=== PATIENT | female | born 1940 | race African-American/Black ===

== ENCOUNTER → 2016-07-19 | Outpatient (CLI) | payer OTHER, MEDICAID ==
[~2016-07-19] MED LIST: ALBU8.5H3 INH; ATOR10TA PO; BUDE10.2 INJ; EZET10TA3 PO; FAMO-79 PO; GADOBUTROL 7.5 MMOL/7.5 ML VIAL ONE; HYDR-3138 PO
== END | disposition home or self-care (01) ==
LOC: CFH 09:40
PROVIDERS: ATTEND Nurse Practitioner Family
DX: J44.9 Chronic obstructive pulmonary disease, unspecified (principal); R60.0 Localized edema; M19.031 Primary osteoarthritis, right wrist; I10 Essential (primary) hypertension
CPT/HCPCS: 71020; 73220; A9585

== ENCOUNTER → 2017-01-02 | Outpatient (CLI) | payer OTHER, MEDICAID ==
[~2017-01-02] MED LIST changes: -ALBU8.5H3 INH; +ALBU8.5H8 INH; +EZET10TA18 PO; -EZET10TA3 PO; -GADOBUTROL 7.5 MMOL/7.5 ML VIAL ONE; -HYDR-3138 PO; +HYDR-3237 PO
== END | disposition home or self-care (01) ==
LOC: CFH 09:31
PROVIDERS: ATTEND Nurse Practitioner Family
DX: Z12.31 Encounter for screening mammogram for malignant neoplasm of breast (principal); Z13.820 Encounter for screening for osteoporosis; M81.0 Age-related osteoporosis without current pathological fracture; Z92.21 Personal history of antineoplastic chemotherapy; Z85.3 Personal history of malignant neoplasm of breast; Z92.3 Personal history of irradiation
CPT/HCPCS: 77080; G0202

== ENCOUNTER → 2017-04-22 | Outpatient (CLI) | payer OTHER, MEDICAID | END | disposition home or self-care (01) | LOC: CFH 10:29 | PROVIDERS: ATTEND Internal Medicine | DX: J44.9 Chronic obstructive pulmonary disease, unspecified (principal); Z98.890 Other specified postprocedural states | CPT/HCPCS: 71046 ==

== ENCOUNTER → 2017-07-28 | Outpatient (CLI) | payer OTHER, MEDICAID | END | disposition home or self-care (01) | LOC: CFH 12:20 | PROVIDERS: ATTEND Licensed Practical Nurse | DX: Z12.2 Encounter for screening for malignant neoplasm of respiratory organs (principal); J44.9 Chronic obstructive pulmonary disease, unspecified; R91.8 Other nonspecific abnormal finding of lung field; F17.210 Nicotine dependence, cigarettes, uncomplicated | CPT/HCPCS: G0297 ==

== ENCOUNTER 2017-08-07 13:53 | Emergency (ER) | payer OTHER, MEDICAID ==
[~2017-08-07] VITALS: Ht 165.1 cm; Wt 71.6 kg
[2017-08-07 13:55] VITALS: BP 103/67
== END 2017-08-07 15:40 | disposition home or self-care (01) ==
LOC: ED 15:30
DX: M25.562 Pain in left knee (principal); M79.89 Other specified soft tissue disorders; R26.2 Difficulty in walking, not elsewhere classified; C50.919 Malignant neoplasm of unspecified site of unspecified female breast; J44.9 Chronic obstructive pulmonary disease, unspecified; M81.0 Age-related osteoporosis without current pathological fracture; I10 Essential (primary) hypertension; E11.9 Type 2 diabetes mellitus without complications; Z88.5 Allergy status to narcotic agent
CPT/HCPCS: 99284

== ENCOUNTER → 2017-09-19 | Outpatient (CLI) | payer OTHER, MEDICAID | LOC: CFH 11:03 | PROVIDERS: ATTEND Surgery | DX: E04.2 Nontoxic multinodular goiter (principal) | CPT/HCPCS: 76536 ==

== ENCOUNTER → 2017-12-15 | Outpatient (CLI) | payer OTHER, MEDICAID ==
[~2017-12-15] MED LIST changes: +GABA300C10 PO; +HYDR-3241 PO; +TIOT18CA INH; +TRAZ-136 PO
== END | disposition home or self-care (01) ==
LOC: STAR 10:49
PROVIDERS: ATTEND Surgery
DX: Z01.818 Encounter for other preprocedural examination (principal); F17.200 Nicotine dependence, unspecified, uncomplicated; Z85.3 Personal history of malignant neoplasm of breast
CPT/HCPCS: 93005

== ENCOUNTER 2017-12-22 05:49 | Inpatient (IN) | payer OTHER, MEDICAID ==
[~2017-12-22] VITALS: Ht 162.6 cm; Wt 76.2 kg
[2017-12-22] MEDS ORDERED: BUPIVACAINE/PF-EPI 0.5% 1:200K ONE (06:43)
[2017-12-22] MEDS ORDERED: LACTATED RINGERS 1,000 ML IV SCH (06:48)
[2017-12-22] MEDS ORDERED: LIDOCAINE-MPF 1%, 2ML INFIL ONE (07:00)
[2017-12-22] MEDS ORDERED: FENTANYL PF 250 MCG/5ML ONE (07:09)
[2017-12-22] MEDS ORDERED: PROPOFOL 50 ML ONE (07:12)
[2017-12-22] MEDS ORDERED: MIDAZOLAM 1 MG/ML, 2ML ONE (07:27)
[2017-12-22] MEDS ORDERED: HYDROmorphone 1 MG/ML, 1ML IV PRN (08:30)
[2017-12-22] MEDS ORDERED: PROMETHAZINE 25 MG SUPP PR PRN (08:30)
[2017-12-22] MEDS ORDERED: LABETALOL 5MG/ML, 20ML IV PRN (08:30)
[2017-12-22] MEDS ORDERED: PROMETHAZINE 12.5 MG SUPP PR PRN (08:30)
[2017-12-22] MEDS ORDERED: EPHEDRINE 50 MG/ML, 1ML IM PRN (08:30)
[2017-12-22] MEDS ORDERED: MIDAZOLAM 1 MG/ML, 2ML IV PRN (08:30)
[2017-12-22] MEDS ORDERED: DIPHENHYDRAMINE 50 MG/ML, 1ML IVPush PRN (08:30)
[2017-12-22] MEDS ORDERED: EPHEDRINE 50 MG/ML, 1ML IVPush PRN (08:30)
[2017-12-22] MEDS ORDERED: ONDANSETRON 2MG/ML, 2ML IV PRN ×2 (08:30→11:30)
[2017-12-22] MEDS ORDERED: ONDANSETRON ODT 8 MG PO PRN (08:30)
[2017-12-22] MEDS ORDERED: ACETAMINOPHEN 325 MG TABLET PO PRN ×2 (08:30→11:30)
[2017-12-22] MEDS ORDERED: HYDROcodone/APAP 7.5-325MG/15ML UDC ONE (09:27)
[2017-12-22] MEDS ORDERED: FENTANYL PF 100 MCG/2ML ONE (09:27)
[2017-12-22] MEDS: FENTANYL PF 100 MCG/2ML IV PRN ×3 (09:35→09:49)
[2017-12-22] MEDS ORDERED: HYDROmorphone 2 MG/ML, 1ML ONE (09:52)
[2017-12-22] MEDS ORDERED: HYDROcodone/APAP 7.5-325MG/15ML UDC PO PRN (10:00)
[2017-12-22] MEDS ORDERED: ALBUTEROL SULFATE 2.5 MG/3 ML HHN PRN (11:30)
[2017-12-22] MEDS ORDERED: ACETAMINOPHEN 650 MG SUPP PR PRN (11:30)
[2017-12-22] MEDS ORDERED: hydrALAzine 20 MG/ML, 1ML IV PRN (11:30)
[2017-12-22] MEDS ORDERED: TRAZODONE 100MG TABLET PO PRN (12:30)
[2017-12-22 12:56] VITALS: BP 125/76
[2017-12-22] MEDS: HYDROcodone/APAP 5/325 TABLET PO PRN ×2 (13:59→20:12)
[2017-12-22] MEDS: IPRATROPIUM 0.5 MG/2.5 ML INHA HHN SCH ×2 (15:00→21:00)
[2017-12-22] MEDS ORDERED: CEFAZOLIN 1,000 MG ONE (16:13)
[2017-12-22] MEDS ORDERED: ONDANSETRON 2MG/ML, 2ML ONE (16:13)
[2017-12-22] MEDS ORDERED: SUCCINYLCHOLINE 20 MG/ML, 10ML ONE (16:13)
[2017-12-22] MEDS ORDERED: ROCURONIUM 10MG/ML,5ML ONE (16:13)
[2017-12-22] MEDS ORDERED: PROPOFOL 10 MG/ML, 20ML ONE (16:13)
[2017-12-22 19:25] VITALS: BP 119/71
[2017-12-22] MEDS: FAMOTIDINE 20 MG TABLET PO SCH (20:12)
[2017-12-22] MEDS: GABAPENTIN 300 MG CAPSULE PO SCH (20:12)
[2017-12-22] MEDS: SODIUM CHLORIDE FLUSH 10ML SYR IVF SCH (20:13)
[2017-12-22] MEDS ORDERED: ATORVASTATIN 10 MG TABLET PO SCH (21:00)
[2017-12-22 23:30] VITALS: BP 106/71
[2017-12-23] VITALS (13 sets, daily range): BP systolic 89–139; BP diastolic 45–74
[2017-12-23] MEDS: IPRATROPIUM 0.5 MG/2.5 ML INHA HHN SCH ×2 (03:00→09:35)
[2017-12-23] MEDS: GABAPENTIN 300 MG CAPSULE PO SCH (08:34)
[2017-12-23] MEDS: FAMOTIDINE 20 MG TABLET PO SCH (08:42)
[2017-12-23] MEDS: HYDROcodone/APAP 5/325 TABLET PO PRN (08:42)
[2017-12-23] MEDS: SODIUM CHLORIDE FLUSH 10ML SYR IVF SCH (09:00)
[2017-12-23] MEDS ORDERED: EZETIMIBE 10 MG TABLET PO SCH (09:00)
[2017-12-23] MEDS ORDERED: IPRATROPIUM 0.5 MG/2.5 ML INHA NPPB SCH (11:27)
[2017-12-23] MEDS ORDERED: IPRATROPIUM 0.5 MG/2.5 ML INHA HHN SCH (11:28)
== END 2017-12-23 16:07 | disposition home or self-care (01) | DRG 627 ==
LOC: OUT 05:49 → 4NOR 10:48 → OUT 12:07
PROVIDERS: ADMIT Surgery; ATTEND Surgery
PROC: 0GBJ0ZZ Excision of Thyroid Gland Isthmus, Open Approach (ICD-10-PCS; 2017-12-22)
PROC: 0GTH0ZZ Resection of Right Thyroid Gland Lobe, Open Approach (ICD-10-PCS; principal; 2017-12-22 07:30)
DX: E04.1 Nontoxic single thyroid nodule (principal); F17.210 Nicotine dependence, cigarettes, uncomplicated; J44.9 Chronic obstructive pulmonary disease, unspecified; E78.5 Hyperlipidemia, unspecified; I10 Essential (primary) hypertension; E11.9 Type 2 diabetes mellitus without complications; Z90.711 Acquired absence of uterus with remaining cervical stump; Z79.899 Other long term (current) drug therapy; Z82.49 Family history of ischemic heart disease and other diseases of the circulatory system; Z83.3 Family history of diabetes mellitus; Z80.8 Family history of malignant neoplasm of other organs or systems
CPT/HCPCS: 82962; 88307; 94640; G0378; J0690; J1170; J2250; J2405; J2704; J3010; J3490; J7613; J7644; C1760; J0330; J7120

== ENCOUNTER 2017-12-23 21:47 | Inpatient (IN) | payer OTHER, MEDICAID ==
[~2017-12-23] VITALS: Ht 167.6 cm; Wt 74.6 kg
[2017-12-23 22:41] LABS: MICROSCOPIC AUTO
[2017-12-23 22:46] LABS: AMPHETAMINE SCREEN, URINE Negative (Negative); BARBITURATE SCREEN, URINE Negative (Negative); BENZODIAZEPINE SCREEN, URINE Negative (Negative); CANNABINOID SCREEN, URINE Negative (Negative); COCAINE SCREEN, URINE Negative (Negative); METHADONE SCREEN, URINE Negative (Negative); OPIATE SCREEN, URINE Positive (Negative)
[2017-12-23 22:48] LABS: MEAN CORPUSCULAR HEMOGLOBIN 28.9 pg (27.0-34.8); MEAN CORPUSCULAR HGB CONC 33.2 g/dL (32.4-35.8); MEAN CORPUSCULAR VOLUME 86.9 fL (80-100); MEAN PLATELET VOLUME 7.1 fL (7.4-10.4); PLATELET COUNT 268 x10^3/uL (130-400); RED CELL DISTRIBUTION WIDTH 14.9 % (9.6-15.2)
[2017-12-23 22:53] LABS: CULTURE INDICATED? YES
[2017-12-23] MEDS ORDERED: ACETAMINOPHEN 500 MG TABLET PO ONE (23:00)
[2017-12-23] MEDS ORDERED: CEFTRIAXONE 1,000 MG in SODIUM CHLORIDE 0.9% 50 ML IVPB ONE (23:00)
[2017-12-23] MEDS ORDERED: SODIUM CHLORIDE 0.9% 1,000ML IVBOLUS ONE (23:00)
[2017-12-23 23:04] LABS: BASOPHILS % (AUTO) 0 % (0-1); EOSINOPHILS % (AUTO) 0 % (1-7); LYMPHOCYTES # (AUTO) 0.74 x10^3/uL (1-3.4); LYMPHOCYTES % (AUTO) 7 % (22-44); MD SCAN; MONOCYTES # (AUTO) 0.66 x10^3/uL (0.2-0.8); MONOCYTES % (AUTO) 6 % (2-9); NEUTROPHILS # (AUTO) 8.99 x10^3/uL (1.8-6.8); NEUTROPHILS % (AUTO) 87 % (42-75)
[2017-12-23 23:07] LABS: ALANINE AMINOTRANSFERASE 27 U/L (12-78); ALBUMIN 2.7 g/dL (3.4-5.0); ANION GAP 8 mmol/L (5-15); CALCIUM 7.8 mg/dL (8.5-10.1); CHLORIDE 106 mmol/L (98-107); CREATININE 0.63 mg/dL (0.55-1.02)
[2017-12-23 23:09] LABS: ALKALINE PHOSPHATASE 85 U/L (45-117); BILIRUBIN,TOTAL 1.4 mg/dL (0.2-1.0); SALICYLATE LEVEL < 1.7 mg/dL (2.8-20.0); TOTAL PROTEIN 6.5 g/dL (6.4-8.2)
[2017-12-23 23:10] LABS: ACETAMINOPHEN < 2 mcg/mL (10-30)
[2017-12-23] MEDS ORDERED: LEVOFLOXACIN/PMX 750MG/150ML 150 ML ONE (23:11)
[2017-12-23] MEDS ORDERED: ACETAMINOPHEN 500 MG TABLET ONE (23:11)
[2017-12-23] MEDS ORDERED: CEFTRIAXONE PMX 1GM/50ML 50 ML ONE (23:11)
[2017-12-23] MEDS ORDERED: LEVOFLOXACIN/PMX 750MG/150ML 150 ML IV ONE (23:30)
[2017-12-24] MEDS ORDERED: ONDANSETRON ODT 4 MG PO PRN (00:30)
[2017-12-24] MEDS ORDERED: POLYETHYLENE GLYCOL 17 GM PACKET PO PRN (00:30)
[2017-12-24] MEDS ORDERED: ONDANSETRON 2MG/ML, 2ML IVPush PRN (00:30)
[2017-12-24] MEDS ORDERED: TEMPLATE NON-FORMULARY MED. (Albuterol Sulfate (Proair Hfa) 2 PUFF(S)) INH PRN (00:30)
[2017-12-24] MEDS: TRAZODONE 50MG TABLET PO SCH ×2 (02:30→21:00)
[2017-12-24] MEDS: ENOXAPARIN 40 MG/0.4 ML SQ SCH (03:54)
[2017-12-24] MEDS: SODIUM CHLORIDE 0.9% 1,000 ML IV SCH ×2 (03:54→22:15)
[2017-12-24] MEDS ORDERED: ALBUTEROL SULFATE 2.5 MG/3 ML NPPB PRN (04:00)
[2017-12-24] MEDS: IPRATROPIUM 0.5 MG/2.5 ML INHA HHN SCH ×3 (04:00→19:15)
[2017-12-24 04:03] VITALS: BP 110/75
[2017-12-24 06:38] LABS: BASOPHILS # (AUTO) 0.01 x10^3/uL (0-0.1); BASOPHILS % (AUTO) 0 % (0-1); EOSINOPHILS # (AUTO) 0.01 x10^3/uL (0-0.4); EOSINOPHILS % (AUTO) 0 % (1-7); LYMPHOCYTES # (AUTO) 1.12 x10^3/uL (1-3.4); LYMPHOCYTES % (AUTO) 12 % (22-44); MD NO; MEAN CORPUSCULAR HEMOGLOBIN 28.8 pg (27.0-34.8); MEAN CORPUSCULAR HGB CONC 32.9 g/dL (32.4-35.8); MEAN CORPUSCULAR VOLUME 87.4 fL (80-100); MEAN PLATELET VOLUME 7.4 fL (7.4-10.4); MONOCYTES # (AUTO) 0.66 x10^3/uL (0.2-0.8); MONOCYTES % (AUTO) 7 % (2-9); NEUTROPHILS # (AUTO) 7.87 x10^3/uL (1.8-6.8); NEUTROPHILS % (AUTO) 81 % (42-75); PLATELET COUNT 247 x10^3/uL (130-400); RED BLOOD COUNT 3.61 x10^6/uL (3.82-5.3); RED CELL DISTRIBUTION WIDTH 14.9 % (9.6-15.2)
[2017-12-24 06:45] LABS: ANION GAP 7 mmol/L (5-15); CALCIUM 7.6 mg/dL (8.5-10.1); CHLORIDE 108 mmol/L (98-107); CREATININE 0.46 mg/dL (0.55-1.02)
[2017-12-24 07:11] VITALS: BP 115/76
[2017-12-24] MEDS: TEMPLATE NON-FORMULARY MED. (Tiotropium Bromide** (Spiriva**) 18 MCG) INH SCH (09:00)
[2017-12-24] MEDS: GABAPENTIN 300 MG CAPSULE PO SCH ×2 (09:34→22:15)
[2017-12-24] MEDS ORDERED: POTASSIUM PHOSPHATE 22 MEQ in SODIUM CHLORIDE 0.9% 500 ML IV ONE (11:00)
[2017-12-24] MEDS ORDERED: MAGNESIUM SULFATE PMX 4GM/100M 100 ML IV ONE (11:00)
[2017-12-24 12:00] VITALS: BP 132/80
[2017-12-24 12:56] LABS: THYROID STIMULATING HORMONE 0.207 mIU/L (0.358-3.740)
[2017-12-24 19:41] VITALS: BP 122/69
[2017-12-24] MEDS: FAMOTIDINE 20 MG TABLET PO SCH (22:14)
[2017-12-24] MEDS: ATORVASTATIN 10 MG TABLET PO SCH (22:15)
[2017-12-24] MEDS: POTASSIUM CHLORIDE 20 MEQ TAB.ER.PRT PO SCH (22:18)
[2017-12-24] MEDS: EZETIMIBE 10 MG TABLET PO SCH (22:23)
[2017-12-24] MEDS: ACETAMINOPHEN 325 MG TABLET PO PRN (22:58)
[2017-12-24] MEDS ORDERED: LEVOFLOXACIN/PMX 750MG/150ML 150 ML IV SCH (23:30)
[2017-12-25 00:54] VITALS: BP 118/73
[2017-12-25] MEDS: IPRATROPIUM 0.5 MG/2.5 ML INHA HHN SCH ×4 (02:35→20:06)
[2017-12-25] MEDS: ENOXAPARIN 40 MG/0.4 ML SQ SCH (04:09)
[2017-12-25 05:51] LABS: BASOPHILS % (AUTO) 0 % (0-1); EOSINOPHILS # (AUTO) 0.01 x10^3/uL (0-0.4); EOSINOPHILS % (AUTO) 0 % (1-7); LYMPHOCYTES # (AUTO) 0.82 x10^3/uL (1-3.4); LYMPHOCYTES % (AUTO) 8 % (22-44); MD NO; MEAN CORPUSCULAR HEMOGLOBIN 28.5 pg (27.0-34.8); MEAN CORPUSCULAR HGB CONC 32.8 g/dL (32.4-35.8); MEAN CORPUSCULAR VOLUME 86.9 fL (80-100); MEAN PLATELET VOLUME 7.4 fL (7.4-10.4); MONOCYTES # (AUTO) 0.78 x10^3/uL (0.2-0.8); MONOCYTES % (AUTO) 7 % (2-9); NEUTROPHILS # (AUTO) 9.26 x10^3/uL (1.8-6.8); NEUTROPHILS % (AUTO) 85 % (42-75); PLATELET COUNT 250 x10^3/uL (130-400); RED BLOOD COUNT 4.07 x10^6/uL (3.82-5.3); RED CELL DISTRIBUTION WIDTH 14.9 % (9.6-15.2)
[2017-12-25 06:02] LABS: CHLORIDE 107 mmol/L (98-107)
[2017-12-25 06:16] LABS: ALANINE AMINOTRANSFERASE 22 U/L (12-78); ALBUMIN 2.6 g/dL (3.4-5.0); ALKALINE PHOSPHATASE 88 U/L (45-117); ANION GAP 12 mmol/L (5-15); BILIRUBIN,TOTAL 2.2 mg/dL (0.2-1.0); CALCIUM 8.3 mg/dL (8.5-10.1); CREATININE 0.47 mg/dL (0.55-1.02); THYROID STIMULATING HORMONE 0.229 mIU/L (0.358-3.740); TOTAL PROTEIN 6.9 g/dL (6.4-8.2)
[2017-12-25 07:38] VITALS: BP 124/74
[2017-12-25] MEDS: TEMPLATE NON-FORMULARY MED. (Tiotropium Bromide** (Spiriva**) 18 MCG) INH SCH (07:55)
[2017-12-25] MEDS: GABAPENTIN 300 MG CAPSULE PO SCH ×2 (08:28→21:50)
[2017-12-25] MEDS: POTASSIUM CHLORIDE 20 MEQ TAB.ER.PRT PO SCH ×2 (08:28→17:55)
[2017-12-25] MEDS ORDERED: POTASSIUM PHOSPHATE 44 MEQ in SODIUM CHLORIDE 0.9% 500 ML IV ONE (09:00)
[2017-12-25] MEDS: NEUTRA PHOS K 250 MG TABLET PO SCH ×2 (12:52→21:50)
[2017-12-25] MEDS: ACETAMINOPHEN 325 MG TABLET PO PRN (13:36)
[2017-12-25 14:09] VITALS: BP 115/63
[2017-12-25 19:11] VITALS: BP 122/74
[2017-12-25] MEDS: TRAZODONE 50MG TABLET PO SCH (21:00)
[2017-12-25] MEDS: EZETIMIBE 10 MG TABLET PO SCH (21:50)
[2017-12-25] MEDS: FAMOTIDINE 20 MG TABLET PO SCH (21:50)
[2017-12-25] MEDS: ATORVASTATIN 10 MG TABLET PO SCH (21:51)
[2017-12-26] MEDS: IPRATROPIUM 0.5 MG/2.5 ML INHA HHN SCH ×4 (00:25→21:00)
[2017-12-26 00:42] VITALS: BP 118/74
[2017-12-26] MEDS: ENOXAPARIN 40 MG/0.4 ML SQ SCH (05:21)
[2017-12-26 05:33] LABS: BASOPHILS % (AUTO) 0 % (0-1); EOSINOPHILS # (AUTO) 0.03 x10^3/uL (0-0.4); EOSINOPHILS % (AUTO) 0 % (1-7); LYMPHOCYTES # (AUTO) 0.82 x10^3/uL (1-3.4); LYMPHOCYTES % (AUTO) 8 % (22-44); MD NO; MEAN CORPUSCULAR HEMOGLOBIN 28.7 pg (27.0-34.8); MEAN CORPUSCULAR HGB CONC 32.7 g/dL (32.4-35.8); MEAN CORPUSCULAR VOLUME 87.6 fL (80-100); MEAN PLATELET VOLUME 7.8 fL (7.4-10.4); MONOCYTES # (AUTO) 0.91 x10^3/uL (0.2-0.8); MONOCYTES % (AUTO) 9 % (2-9); NEUTROPHILS # (AUTO) 8.11 x10^3/uL (1.8-6.8); NEUTROPHILS % (AUTO) 82 % (42-75); PLATELET COUNT 298 x10^3/uL (130-400); RED BLOOD COUNT 3.72 x10^6/uL (3.82-5.3); RED CELL DISTRIBUTION WIDTH 14.5 % (9.6-15.2)
[2017-12-26] MEDS: ACETAMINOPHEN 325 MG TABLET PO PRN (05:35)
[2017-12-26 05:41] LABS: ANION GAP 10 mmol/L (5-15); CALCIUM 8.1 mg/dL (8.5-10.1); CHLORIDE 107 mmol/L (98-107); CREATININE 0.45 mg/dL (0.55-1.02)
[2017-12-26 08:00] VITALS: BP 124/71
[2017-12-26] MEDS: GABAPENTIN 300 MG CAPSULE PO SCH ×2 (08:29→20:34)
[2017-12-26] MEDS: NEUTRA PHOS K 250 MG TABLET PO SCH ×2 (08:29→20:34)
[2017-12-26] MEDS: LEVOFLOXACIN 750 MG TABLET PO SCH (08:29)
[2017-12-26] MEDS: POTASSIUM CHLORIDE 20 MEQ TAB.ER.PRT PO SCH (08:29)
[2017-12-26] MEDS: TEMPLATE NON-FORMULARY MED. (Tiotropium Bromide** (Spiriva**) 18 MCG) INH SCH (09:00)
[2017-12-26 14:37] VITALS: BP 108/68
[2017-12-26 19:23] VITALS: BP 119/67
[2017-12-26] MEDS: TRAZODONE 50MG TABLET PO SCH (20:34)
[2017-12-26] MEDS: FAMOTIDINE 20 MG TABLET PO SCH (20:34)
[2017-12-26] MEDS: ATORVASTATIN 10 MG TABLET PO SCH (20:34)
[2017-12-26] MEDS: EZETIMIBE 10 MG TABLET PO SCH (20:35)
[2017-12-27] MEDS: IPRATROPIUM 0.5 MG/2.5 ML INHA HHN SCH ×4 (01:25→18:45)
[2017-12-27 03:30] VITALS: BP 99/60
[2017-12-27] MEDS: ENOXAPARIN 40 MG/0.4 ML SQ SCH (04:17)
[2017-12-27 07:13] VITALS: BP 96/60
[2017-12-27] MEDS: TEMPLATE NON-FORMULARY MED. (Tiotropium Bromide** (Spiriva**) 18 MCG) INH SCH (09:00)
[2017-12-27 09:15] LABS: BASOPHILS # (AUTO) 0.02 x10^3/uL (0-0.1); BASOPHILS % (AUTO) 0 % (0-1); EOSINOPHILS # (AUTO) 0.12 x10^3/uL (0-0.4); EOSINOPHILS % (AUTO) 2 % (1-7); LYMPHOCYTES # (AUTO) 1.06 x10^3/uL (1-3.4); LYMPHOCYTES % (AUTO) 16 % (22-44); MD NO; MEAN CORPUSCULAR HEMOGLOBIN 28.2 pg (27.0-34.8); MEAN CORPUSCULAR HGB CONC 32.6 g/dL (32.4-35.8); MEAN CORPUSCULAR VOLUME 86.3 fL (80-100); MEAN PLATELET VOLUME 7.2 fL (7.4-10.4); MONOCYTES # (AUTO) 0.46 x10^3/uL (0.2-0.8); MONOCYTES % (AUTO) 7 % (2-9); NEUTROPHILS % (AUTO) 76 % (42-75); PLATELET COUNT 323 x10^3/uL (130-400); RED CELL DISTRIBUTION WIDTH 14.9 % (9.6-15.2)
[2017-12-27 09:26] LABS: ALANINE AMINOTRANSFERASE 20 U/L (12-78); ALBUMIN 2.4 g/dL (3.4-5.0); ANION GAP 11 mmol/L (5-15); CALCIUM 8.1 mg/dL (8.5-10.1); CHLORIDE 106 mmol/L (98-107); CREATININE 0.63 mg/dL (0.55-1.02)
[2017-12-27 09:29] LABS: ALKALINE PHOSPHATASE 84 U/L (45-117); TOTAL PROTEIN 7.1 g/dL (6.4-8.2)
[2017-12-27] MEDS: LEVOFLOXACIN 750 MG TABLET PO SCH (09:44)
[2017-12-27] MEDS: GABAPENTIN 300 MG CAPSULE PO SCH ×2 (09:44→20:23)
[2017-12-27] MEDS: NEUTRA PHOS K 250 MG TABLET PO SCH ×2 (09:44→20:23)
[2017-12-27] MEDS ORDERED: POTASSIUM CHLORIDE 20 MEQ TAB.ER.PRT PO ONE ×2 (10:00→14:00)
[2017-12-27] MEDS ORDERED: LIDOCAINE-MPF 2%, 2ML ONE (12:35)
[2017-12-27 13:40] VITALS: BP 139/95
[2017-12-27] MEDS ORDERED: OMNIPAQUE 350 MG/ML, 100ML BOTTLE ONE (13:44)
[2017-12-27] MEDS: ATORVASTATIN 10 MG TABLET PO SCH (20:23)
[2017-12-27] MEDS: FAMOTIDINE 20 MG TABLET PO SCH (20:23)
[2017-12-27] MEDS: TRAZODONE 50MG TABLET PO SCH (20:23)
[2017-12-27] MEDS: EZETIMIBE 10 MG TABLET PO SCH (20:23)
[2017-12-27 21:06] VITALS: BP 105/88
[2017-12-28] MEDS: IPRATROPIUM 0.5 MG/2.5 ML INHA HHN SCH ×2 (00:55→06:40)
[2017-12-28 01:34] VITALS: BP 106/68
[2017-12-28] MEDS: ENOXAPARIN 40 MG/0.4 ML SQ SCH (04:49)
[2017-12-28 05:05] LABS: BASOPHILS % (AUTO) 0 % (0-1); EOSINOPHILS # (AUTO) 0.17 x10^3/uL (0-0.4); EOSINOPHILS % (AUTO) 2 % (1-7); LYMPHOCYTES # (AUTO) 1.86 x10^3/uL (1-3.4); LYMPHOCYTES % (AUTO) 26 % (22-44); MD NO; MEAN CORPUSCULAR HEMOGLOBIN 28.4 pg (27.0-34.8); MEAN CORPUSCULAR HGB CONC 32.4 g/dL (32.4-35.8); MEAN CORPUSCULAR VOLUME 87.8 fL (80-100); MEAN PLATELET VOLUME 7.3 fL (7.4-10.4); MONOCYTES % (AUTO) 10 % (2-9); NEUTROPHILS # (AUTO) 4.48 x10^3/uL (1.8-6.8); NEUTROPHILS % (AUTO) 62 % (42-75); PLATELET COUNT 334 x10^3/uL (130-400); RED BLOOD COUNT 3.83 x10^6/uL (3.82-5.3); RED CELL DISTRIBUTION WIDTH 14.9 % (9.6-15.2)
[2017-12-28 05:11] LABS: ALBUMIN 2.3 g/dL (3.4-5.0); ANION GAP 7 mmol/L (5-15); CALCIUM 8.6 mg/dL (8.5-10.1); CHLORIDE 106 mmol/L (98-107); CREATININE 0.52 mg/dL (0.55-1.02)
[2017-12-28 07:47] VITALS: BP 94/57
[2017-12-28] MEDS: NEUTRA PHOS K 250 MG TABLET PO SCH (08:37)
[2017-12-28] MEDS: LEVOFLOXACIN 750 MG TABLET PO SCH (08:37)
[2017-12-28] MEDS: GABAPENTIN 300 MG CAPSULE PO SCH (08:37)
[2017-12-28] MEDS: TEMPLATE NON-FORMULARY MED. (Tiotropium Bromide** (Spiriva**) 18 MCG) INH SCH (08:48)
[2017-12-28] MEDS: EZETIMIBE 10 MG TABLET PO SCH (09:00)
== END 2017-12-28 13:50 | disposition home health service (06) | DRG 871 ==
LOC: ED 23:24 → EDIP 23:36 → SUATTDRO 23:43 → 5SO 12-24 01:59 → 3NE 12-25 13:13
PROVIDERS: ADMIT Hospitalist; ATTEND Hospitalist
PROC: 02HV33Z Insertion of Infusion Device into Superior Vena Cava, Percutaneous Approach (ICD-10-PCS; principal; 2017-12-27)
PROC: B5181ZA Fluoroscopy of Superior Vena Cava using Low Osmolar Contrast, Guidance (ICD-10-PCS; 2017-12-27)
PROC: B548ZZA Ultrasonography of Superior Vena Cava, Guidance (ICD-10-PCS; 2017-12-27)
DX: A41.9 Sepsis, unspecified organism (principal); J15.9 Unspecified bacterial pneumonia; J96.01 Acute respiratory failure with hypoxia; G93.49 Other encephalopathy; E43 Unspecified severe protein-calorie malnutrition; J44.0 Chronic obstructive pulmonary disease with (acute) lower respiratory infection; E87.6 Hypokalemia; E83.39 Other disorders of phosphorus metabolism; E04.1 Nontoxic single thyroid nodule; E11.9 Type 2 diabetes mellitus without complications; E78.5 Hyperlipidemia, unspecified; E83.42 Hypomagnesemia; G47.33 Obstructive sleep apnea (adult) (pediatric); I10 Essential (primary) hypertension; I25.10 Atherosclerotic heart disease of native coronary artery without angina pectoris; K21.9 Gastro-esophageal reflux disease without esophagitis; M81.0 Age-related osteoporosis without current pathological fracture; N30.90 Cystitis, unspecified without hematuria; Z85.3 Personal history of malignant neoplasm of breast; Z87.891 Personal history of nicotine dependence; Z90.710 Acquired absence of both cervix and uterus; Z90.49 Acquired absence of other specified parts of digestive tract; I25.2 Old myocardial infarction; Z90.721 Acquired absence of ovaries, unilateral; Z88.5 Allergy status to narcotic agent; Z88.1 Allergy status to other antibiotic agents; Z88.8 Allergy status to other drugs, medicaments and biological substances; Z68.26 Body mass index [BMI] 26.0-26.9, adult
CPT/HCPCS: 36415; 36569; 70450; 71045; 71250; 71275; 76937; 77001; 80048; 80053; 80307; 80329; 81001; 82040; 82140; 82607; 83735; 83880; 84100; 84145; 84439; 84443; 84481; 85025; 85379; 87040; 87086; 87205; 93005; 93306; 94640; 96365; G0378; J1650; J1956; J3490; J7644; Q9967; C1751; G0480; J3475; J7030; J7040

== ENCOUNTER 2018-02-04 11:58 | Emergency (ER) | payer OTHER, MEDICAID ==
[~2018-02-04] VITALS: Ht 163.8 cm; Wt 70.7 kg
[2018-02-04 12:19] VITALS: BP 116/53
== END 2018-02-04 13:13 | disposition home or self-care (01) ==
LOC: ED 13:07
DX: H01.001 Unspecified blepharitis right upper eyelid (principal); H01.002 Unspecified blepharitis right lower eyelid; I10 Essential (primary) hypertension; E11.9 Type 2 diabetes mellitus without complications; J44.9 Chronic obstructive pulmonary disease, unspecified; Z88.5 Allergy status to narcotic agent
CPT/HCPCS: 99283

== ENCOUNTER 2018-09-11 10:02 | Outpatient (CLI) | payer MEDICARE, MEDICAID ==
[~2018-09-11 10:02] MED LIST changes: -TRAZ-136 PO; +TRAZ50TA66 PO
== END 2018-09-11 23:59 | disposition home or self-care (01) ==
LOC: CFH 10:02
PROVIDERS: ATTEND Licensed Practical Nurse
DX: Z12.2 Encounter for screening for malignant neoplasm of respiratory organs (principal); J43.9 Emphysema, unspecified; R91.8 Other nonspecific abnormal finding of lung field; F17.200 Nicotine dependence, unspecified, uncomplicated
CPT/HCPCS: G0297

== ENCOUNTER → 2019-04-28 | Outpatient (CLI) | payer MEDICARE, MEDICAID ==
[~2019-04-28] MED LIST changes: +CEFD300C37 PO; -EZET10TA18 PO; +EZET10TA70 PO; +OMNIPAQUE 350 MG/ML, 100ML BOTTLE ONE; +POTA20TA6 PO
== END | disposition home or self-care (01) ==
LOC: CFH 11:24
PROVIDERS: ATTEND Nurse Practitioner Family
DX: K57.30 Diverticulosis of large intestine without perforation or abscess without bleeding (principal); M47.816 Spondylosis without myelopathy or radiculopathy, lumbar region; R63.4 Abnormal weight loss; Z90.49 Acquired absence of other specified parts of digestive tract
CPT/HCPCS: 74177; Q9967

== ENCOUNTER 2019-05-13 10:03 | Outpatient (CLI) | payer MEDICAID, MEDICARE ==
[~2019-05-13 10:03] MED LIST changes: -OMNIPAQUE 350 MG/ML, 100ML BOTTLE ONE
== END 2019-05-13 23:59 | disposition home or self-care (01) ==
LOC: CFH 10:03
PROVIDERS: ATTEND Nurse Practitioner Family
DX: Z12.31 Encounter for screening mammogram for malignant neoplasm of breast (principal); M85.88 Other specified disorders of bone density and structure, other site
CPT/HCPCS: 77080; 77067

== ENCOUNTER 2020-12-13 09:25 | Outpatient (CLI) | payer MEDICARE, MEDICAID ==
[~2020-12-13 09:25] MED LIST changes: +POTA-143 PO; -POTA20TA6 PO
== END 2020-12-13 23:59 | disposition home or self-care (01) ==
LOC: CFH 09:25
PROVIDERS: ATTEND Internal Medicine
DX: J43.2 Centrilobular emphysema (principal); R91.8 Other nonspecific abnormal finding of lung field
CPT/HCPCS: 71250